=== PATIENT | female | born 1975 | race Caucasian/White ===

== ENCOUNTER → 2016-12-08 | Outpatient (CLI) | payer OTHER ==
--- NOTE | 2016-12-08 12:33 | DIAGNOSTIC IMAGING REPORT ---
PROCEDURE: MG BILATERAL SCREENING W/CAD INDICATION: Screening. Baseline. TECHNIQUE: Bilateral CC and MLO digital views. COMPARISON: None FINDINGS: Computer-aided detection applied. Moderately dense. No evidence of mass or suspicious calcification. IMPRESSION: 1. Negative mammogram RESULT CODE: 1- Negative. A. A negative report should not delay biopsy if a dominant or clinically suspicious mass is present. 10-15% of cancers are not identified by x-ray. B. A negative report may reinforce clinical impression. C. Adenosis and dense breasts may obscure an underlying neoplasm. D. False positive reports average 6-10%. E.. A yearly screening mammogram is recommended. A reminder letter will be scheduled.
== END ==
LOC: MAM SRH 10:49
DX: Z12.31 Encounter for screening mammogram for malignant neoplasm of breast (principal)

== ENCOUNTER 2017-02-01 20:20 | Emergency (ER) | payer OTHER ==
--- NOTE | 2017-02-01 21:04 | ED CLINICAL REPORT ---
Clinical Report - Physicians/Mid Levels [facility] [address] [place] [address] 02/01/2017 20:23 [id number] Time Seen: 20:34 Feb 01 2017. Arrived- By private vehicle. Historian- patient. HISTORY OF PRESENT ILLNESS Chief Complaint: Injury to right leg. The injury happened just prior to arrival. Occurred at an athletic field. This was not caused by a crush injury. Patient is experiencing mild pain. Patient denies injury to the head or neck. (Patient was running while playing football, when she felt a snap and pop sensation to her right calf. Patient reports pain to the right calf since the incident. Patient denies prior injury to the calf, has had surgery to the right knee. Reports difficulty ambulating since. Denies any paresthesias. Denies taking any medications prior to arrival. Denies any other injury. Hasn't had her neck or LOC injured). REVIEW OF SYSTEMS The patient sustained a laceration. She complains of pain on weight bearing. All systems otherwise negative, except as recorded above. PAST HISTORY The patient has had a prior injury to the same area (R. Knee Surgery). Last tetanus immunization was more than 5 years ago. Problems: no known problems. Additional Surgeries: Cholecystectomy. . Knee Surgery. Medications: Zoloft Oral 100 mg, daily. Allergies: Ampicillin. SOCIAL HISTORY No alcohol use or drug use. ADDITIONAL NOTES The nursing notes have been reviewed. PHYSICAL EXAM Vital Signs: 02/01/2017 20:27 BP: 113/52. HR: 88. RR: 18. O2 saturation: 100%. Temp: 98.4 F. Pain level now: 7/10. Appearance: Alert. No acute distress. Head: Head atraumatic. CVS: Normal heart rate and rhythm. Heart sounds normal. Respiratory: No respiratory distress. Breath sounds normal. Skin: Skin intact. Skin warm. Normal skin color. Extremities: Lower extremity soft-tissue tenderness present. Right knee. No tenderness or swelling. Right leg. (posterior mid calf tenderness, neg squeeze test, intact achilles good plantar flexion, pain with flexion of calcaneous to gluteus). Right ankle. No tenderness or laceration. Not localized to the lateral ligaments. Neuro, Vascular and Tendons: Vascular status intact. Motor intact. Tendon function intact. Gait: Limping gait. Neuro: Oriented X 3. PROGRESS AND PROCEDURES PROCEDURES (richard wrap right calf/ crutches). Course of Care: Patient with a right calf injury, with no signs of Achilles injury. Very stable. Running mechanism, with no direct fall or trauma, suspicion for acute fracture is very low. Patient with a good distal pulse and sensation. 02/01/2017 20:27 BP: 113/52. HR: 88. RR: 18. O2 saturation: 100%. Temp: 98.4 F. Pain level now: 10. Patient is stable. Symptoms better. Patient/family counseled. Disposition: Discharged. CLINICAL IMPRESSION Muscle strain of the posterior aspect of the right lower leg. INSTRUCTIONS Apply ice. Use crutches for five. Elevate affected areas above chest level. Do not work for two days. (use richard wrap follow up with [facility] in next 4-5 days). Prescription Medications: Hydrocodone/APAP 5mg / 325mg: take 1 orally every 12 hours as needed for pain. Dispense twelve (12). Flexeril 10 mg: take 1 orally every 8 hours for 3 days as needed for muscle spasm. Dispense ten (10). No refills. Substitution is permissible. Ibuprofen 800 mg tablets: take 1 tablet orally every 8 hours for 5 days, as needed for pain. Dispense fifteen (15). No refill. Follow-up with: [facility], , [address], , [place], [address] Follow up. Call for the next available appointment. (Electronically signed by Rosita Massey P.A.-C 02/01/2017 21:18)
--- NOTE | 2017-02-01 21:04 | ED CLINICAL REPORT ---
Clinical Report - Physicians/Mid Levels [facility] [address] [place] [address] 02/01/2017 20:23 [id number] Time Seen: 20:34 Feb 01 2017. Arrived- By private vehicle. Historian- patient. HISTORY OF PRESENT ILLNESS Chief Complaint: Injury to right leg. The injury happened just prior to arrival. Occurred at an athletic field. This was not caused by a crush injury. Patient is experiencing mild pain. Patient denies injury to the head or neck. (Patient was running while playing football, when she felt a snap and pop sensation to her right calf. Patient reports pain to the right calf since the incident. Patient denies prior injury to the calf, has had surgery to the right knee. Reports difficulty ambulating since. Denies any paresthesias. Denies taking any medications prior to arrival. Denies any other injury. Hasn't had her neck or LOC injured). REVIEW OF SYSTEMS The patient sustained a laceration. She complains of pain on weight bearing. All systems otherwise negative, except as recorded above. PAST HISTORY The patient has had a prior injury to the same area (R. Knee Surgery). Last tetanus immunization was more than 5 years ago. Problems: no known problems. Additional Surgeries: Cholecystectomy. . Knee Surgery. Medications: Zoloft Oral 100 mg, daily. Allergies: Ampicillin. SOCIAL HISTORY No alcohol use or drug use. ADDITIONAL NOTES The nursing notes have been reviewed. PHYSICAL EXAM Vital Signs: 02/01/2017 20:27 BP: 113/52. HR: 88. RR: 18. O2 saturation: 100%. Temp: 98.4 F. Pain level now: 7/10. Appearance: Alert. No acute distress. Head: Head atraumatic. CVS: Normal heart rate and rhythm. Heart sounds normal. Respiratory: No respiratory distress. Breath sounds normal. Skin: Skin intact. Skin warm. Normal skin color. Extremities: Lower extremity soft-tissue tenderness present. Right knee. No tenderness or swelling. Right leg. (posterior mid calf tenderness, neg squeeze test, intact achilles good plantar flexion, pain with flexion of calcaneous to gluteus). Right ankle. No tenderness or laceration. Not localized to the lateral ligaments. Neuro, Vascular and Tendons: Vascular status intact. Motor intact. Tendon function intact. Gait: Limping gait. Neuro: Oriented X 3. PROGRESS AND PROCEDURES PROCEDURES (richard wrap right calf/ crutches). Course of Care: Patient with a right calf injury, with no signs of Achilles injury. Very stable. Running mechanism, with no direct fall or trauma, suspicion for acute fracture is very low. Patient with a good distal pulse and sensation. 02/01/2017 20:27 BP: 113/52. HR: 88. RR: 18. O2 saturation: 100%. Temp: 98.4 F. Pain level now: 10. Patient is stable. Symptoms better. Patient/family counseled. Disposition: Discharged. CLINICAL IMPRESSION Muscle strain of the posterior aspect of the right lower leg. INSTRUCTIONS Apply ice. Use crutches for five. Elevate affected areas above chest level. Do not work for two days. (use richard wrap follow up with [facility] in next 4-5 days). Prescription Medications: Hydrocodone/APAP 5mg / 325mg: take 1 orally every 12 hours as needed for pain. Dispense twelve (12). Flexeril 10 mg: take 1 orally every 8 hours for 3 days as needed for muscle spasm. Dispense ten (10). No refills. Substitution is permissible. Ibuprofen 800 mg tablets: take 1 tablet orally every 8 hours for 5 days, as needed for pain. Dispense fifteen (15). No refill. Follow-up with: [facility], , [address], , [place], [address] Follow up. Call for the next available appointment. (Electronically signed by Rosita Massey P.A.-C 02/01/2017 21:18)
--- NOTE | 2017-02-01 21:04 | ED NURSING NOTES ---
Clinical Report - Nurses [facility] [address] [place] [address] 02/01/2017 20:23 Patient: MICHI MARIE TRIAGE Triage time 2027. Acuity: LEVEL 4. Chief Complaint: INJURY TO THE RIGHT LEG. ( last ate 1730- turkey sandwich, last liquids 8 oz water at 1830). SAMANTA COMA SCORE: Samanta Coma Scale: 15- eyes open spontaneously (4); best verbal response- oriented x 4 (5); best motor response- obeys commands (6). --20:36 Jolie Lopez R.N. 20:27 02/01/17. BP: 113/52. HR: 88. RR: 18. O2 saturation: 100%. Temp: 98.4 F. Pain level now: 04/10. --20:36 Jolie Lopez R.N. Weight: 61.2 kg stated. Height/Length: 68 inches Per Patient. BMI: 20.5. --20:35 Jolie Lopez R.N. Medications Zoloft Oral 100 mg, daily. --20:34 Jolie Lopez R.N. Allergies Ampicillin. --20:34 Jolie Lopez R.N. History Arrived by private vehicle. Historian: patient. Accompanied by family. Primary physician (nicola). This occurred (pt was running and "felt her leg Pop" and had severe pain in her right calf. unable to walk on foot now. has good distal color, temp and cap refill). She has had trouble walking. PAST MEDICAL HX: Negative. Last normal menstrual period- 1 week. SURGERY HX: . Cholecystectomy. Right knee surgery (x3). SOCIAL HX: Never smoker. No alcohol use or drug use. --20:36 Jolie Lopez R.N. PROBLEMS: no known problems. Interventions ID band on patient. To treatment room. --20:36 Jolie Lopez R.N. PHYSICAL ASSESSMENT 20:28. To room via wheelchair. Patient gowned. GENERAL / NEURO / PSYCH: Oriented X 4. Alert. Appears in pain. EXTREMITIES: Limited ROM present. Capillary refill is less than 2 seconds in the extremities. Extremity pulses are within normal limits. She was unable to bear weight. Right leg: tenderness. SKIN: Skin intact. Skin is warm and dry. --20:37 Jolie Lopez R.N. NURSING PROGRESS NOTES 20:28. Cold pack applied. Reassurance given. Patient identifiers checked. Call light placed in reach. Side rails up. Bed placed in lowest position. Patient ready for evaluation- chart flagged. --20:36 Jolie Lopez R.N. 21:00 02/01/2017 Valium (Diazepam) PO Tablets 2.5 mg given. Allergies verified, confirmed 5 rights and sedative warning given to the patient. --21:01 Jolie Lopez R.N. 21:00 02/01/2017 Motrin PO Tablets 800 mg given. Allergies verified and confirmed 5 rights. --21:02 Jolie Lopez R.N. 21:02/01/2017 Hydrocodone-APAP (Hydrocodone-Acetaminophen) PO 5/325 mg Tablets 1 tab given. Allergies verified, confirmed 5 rights and sedative warning given to the patient. --21:01 Jolie Lopez R.N. ( 2054: Right calf wrap with JUSTICE). --21:05 Cheyenne Callahan Patient fit with new crutches (2056). --21:05 Cheyenne Callahan. DISPOSITION / DISCHARGE 21:05. Condition at departure: stable. No learning barriers present. Discharge instructions provided and reviewed with the patient and family. Reviewed medication(s) (flexeril, vicodin, motrin). Reviewed crutch walking instructions. Patient and family verbalized understanding. Written instructions provided in [place]. The patient was discharged home and accompanied by family. She left the Emergency Department ambulatory and via private vehicle. Driving (sister). --21:16 Jolie Lopez R.N. 21:05 02/01/17. BP: 102/69. HR: 76. RR: 16. O2 saturation: 100%. Temp: deferred. Pain level now: 03/11. --21:16 Jolie Lopez R.N. Locked/Released at 02/01/2017 21:16 by Jolie Lopez R.N.
--- NOTE | 2017-02-01 21:04 | ED NURSING NOTES ---
Clinical Report - Nurses [facility] [address] [place] [address] 02/01/2017 20:23 Patient: MICHI MARIE TRIAGE Triage time 2027. Acuity: LEVEL 4. Chief Complaint: INJURY TO THE RIGHT LEG. ( last ate 1730- turkey sandwich, last liquids 8 oz water at 1830). SAMANTA COMA SCORE: Samanta Coma Scale: 15- eyes open spontaneously (4); best verbal response- oriented x 4 (5); best motor response- obeys commands (6). --20:36 Jolie Lopez R.N. 20:27 02/01/17. BP: 113/52. HR: 88. RR: 18. O2 saturation: 100%. Temp: 98.4 F. Pain level now: 04/10. --20:36 Jolie Lopez R.N. Weight: 61.2 kg stated. Height/Length: 68 inches Per Patient. BMI: 20.5. --20:35 Jolie Lopez R.N. Medications Zoloft Oral 100 mg, daily. --20:34 Jolie Lopez R.N. Allergies Ampicillin. --20:34 Jolie Lopez R.N. History Arrived by private vehicle. Historian: patient. Accompanied by family. Primary physician (nicola). This occurred (pt was running and "felt her leg Pop" and had severe pain in her right calf. unable to walk on foot now. has good distal color, temp and cap refill). She has had trouble walking. PAST MEDICAL HX: Negative. Last normal menstrual period- 1 week. SURGERY HX: . Cholecystectomy. Right knee surgery (x3). SOCIAL HX: Never smoker. No alcohol use or drug use. --20:36 Jolie Lopez R.N. PROBLEMS: no known problems. Interventions ID band on patient. To treatment room. --20:36 Jolie Lopez R.N. PHYSICAL ASSESSMENT 20:28. To room via wheelchair. Patient gowned. GENERAL / NEURO / PSYCH: Oriented X 4. Alert. Appears in pain. EXTREMITIES: Limited ROM present. Capillary refill is less than 2 seconds in the extremities. Extremity pulses are within normal limits. She was unable to bear weight. Right leg: tenderness. SKIN: Skin intact. Skin is warm and dry. --20:37 Jolie Lopez R.N. NURSING PROGRESS NOTES 20:28. Cold pack applied. Reassurance given. Patient identifiers checked. Call light placed in reach. Side rails up. Bed placed in lowest position. Patient ready for evaluation- chart flagged. --20:36 Jolie Lopez R.N. 21:00 02/01/2017 Valium (Diazepam) PO Tablets 2.5 mg given. Allergies verified, confirmed 5 rights and sedative warning given to the patient. --21:01 Jolie Lopez R.N. 21:00 02/01/2017 Motrin PO Tablets 800 mg given. Allergies verified and confirmed 5 rights. --21:02 Jolie Lopez R.N. 21:02/01/2017 Hydrocodone-APAP (Hydrocodone-Acetaminophen) PO 5/325 mg Tablets 1 tab given. Allergies verified, confirmed 5 rights and sedative warning given to the patient. --21:01 Jolie Lopez R.N. ( 2054: Right calf wrap with JUSTICE). --21:05 Cheyenne Callahan Patient fit with new crutches (2056). --21:05 Cheyenne Callahan. DISPOSITION / DISCHARGE 21:05. Condition at departure: stable. No learning barriers present. Discharge instructions provided and reviewed with the patient and family. Reviewed medication(s) (flexeril, vicodin, motrin). Reviewed crutch walking instructions. Patient and family verbalized understanding. Written instructions provided in Algerian. The patient was discharged home and accompanied by family. She left the Emergency Department ambulatory and via private vehicle. Driving (sister). --21:16 Jolie Lopez R.N. 21:05 02/01/17. BP: 102/69. HR: 76. RR: 16. O2 saturation: 100%. Temp: deferred. Pain level now: 03/11. --21:16 Jolie Lopez R.N. Locked/Released at 02/01/2017 21:16 by Jolie Lopez R.N.
--- NOTE | 2017-02-01 21:05 | ED ORDER SUMMARY ---
..... Patient: MICHI MARIE OrderSheet [facility] VisitID: [id number] [place] [address] 41y, F Registration Date/Time: 02/01/2017 ORDER SHEET Weight: 61.2 kg (stated) Allergies: Ampicillin GENERAL ORDERS: Alexey Wrap (20:48 02/01/2017 EKoroleva P.A.-C) (21:01 Destin) Crutches (20:48 02/01/2017 EKoroleva P.A.-C) (21:01 Eliasnina) MEDICATION ORDERS: Valium PO 2.5 mg (HIGH ALERT MEDICATION, NOW) (20:47 02/01/2017 EKoroleva P.A.-C) (Ack 20:49 DDean R.N.) (21:01 DDean R.N.) Hydrocodone-APAP PO 5/325 mg (NOW, HIGH ALERT MEDICATION) (20:47 02/01/2017 EKoroleva P.A.-C) (Ack 20:49 DDean R.N.) (21:01 DDean R.N.) Motrin PO 800 mg (NOW) (20:47 02/01/2017 EKoroleva P.A.-C) (Ack 20:49 DDean R.N.) (21:02 DDean R.N.) IV FLUIDS: ORDER SHEET NOTES: [Electronically signed by Jolie Lopez R.N. (21:16 02/01/2017)] [Electronically signed by Rosita MasseyA.-C (21:18 02/01/2017)] [Electronically locked/signed by Jolie Lopez R.N. (21:16 02/01/2017)]
--- NOTE | 2017-02-01 21:05 | ED ORDER SUMMARY ---
..... Patient: MICHI MARIE OrderSheet [facility] VisitID: [id number] [place] [address] 41y, F Registration Date/Time: 02/01/2017 ORDER SHEET Weight: 61.2 kg (stated) Allergies: Ampicillin GENERAL ORDERS: Alexey Wrap (20:48 02/01/2017 EKoroleva P.A.-C) (21:01 [place]in) Crutches (20:48 02/01/2017 EKoroleva P.A.-C) (21:01 Eliasnina) MEDICATION ORDERS: Valium PO 2.5 mg (HIGH ALERT MEDICATION, NOW) (20:47 02/01/2017 EKoroleva P.A.-C) (Ack 20:49 DDean R.N.) (21:01 DDean R.N.) Hydrocodone-APAP PO 5/325 mg (NOW, HIGH ALERT MEDICATION) (20:47 02/01/2017 EKoroleva P.A.-C) (Ack 20:49 DDean R.N.) (21:01 DDean R.N.) Motrin PO 800 mg (NOW) (20:47 02/01/2017 EKoroleva P.A.-C) (Ack 20:49 DDean R.N.) (21:02 DDean R.N.) IV FLUIDS: ORDER SHEET NOTES: [Electronically signed by Jolie Lopez R.N. (21:16 02/01/2017)] [Electronically signed by Rosita MasseyA.-C (21:18 02/01/2017)] [Electronically locked/signed by Jolie Lopez R.N. (21:16 02/01/2017)]
--- NOTE | 2017-02-01 21:19 | ED MAR SUMMARY ---
..... Medication Administration Record [facility] [address] [place] [address] Patient: MICHI MARIE Visit ID: [id number] 41y, F Weight: 61.2 kg Height/Length: 68 in BMI: 20.5 ALLERGIES: Ampicillin Given 21:02/01/2017 Jolie Lopez R.N. Medication Administered: VALIUM [PO] (DIAZEPAM), Dose: 2.5 mg Tablets PO. Medication Ordered: Valium PO 2.5 mg (HIGH ALERT MEDICATION, NOW). Given 21:02/01/2017 Jolie Lopez R.N. Medication Administered: MOTRIN [PO], Dose: 800 mg Tablets PO. Medication Ordered: Motrin PO 800 mg (NOW). Given 21:01 02/01/2017 Jolie Lopez RIvonneN. Medication Administered: HYDROCODONE-APAP [PO] (HYDROCODONE-ACETAMINOPHEN), Dose: 1 tab 5/325 mg Tablets PO. Medication Ordered: Hydrocodone-APAP PO 5/325 mg (NOW, HIGH ALERT MEDICATION).
--- NOTE | 2017-02-01 21:19 | ED MED RECONCILIATION SUMMARY ---
Patient: MICHI MARIE Medication Reconciliation Report [facility] VisitID: [id number] [place] [address] 41y, F Registration Date/Time: 02/01/2017 Weight: 61.2 kg Height/Length: 68 in. BMI: 20.5 ALLERGIES: Ampicillin The patient's Home Medications are listed below: THE FOLLOWING MEDICATIONS NEED TO BE RECONCILED: Zoloft Oral 100 mg, daily The source(s) of the original Home Medication information: Not obtained. The following Medications were given to the patient in the Emergency Department: Valium [PO] PO 2.5 mg, administered: 02/01/2017 9:00:00 PM Hydrocodone-APAP [PO] PO 1 tab, administered: 02/01/2017 9:01:00 PM Motrin [PO] PO 800 mg, administered: 02/01/2017 9:00:00 PM The following Medications were prescribed to the patient: Hydrocodone/APAP 5mg / 325mg: take 1 orally every 12 hours as needed for pain. Dispense twelve (12). -- Rosita Massey, P.A.-C Flexeril 10 mg: take 1 orally every 8 hours for 3 days as needed for muscle spasm. Dispense ten (10). No refills. Substitution is permissible. -- Rosita Massey, P.A.-C Ibuprofen 800 mg tablets: take 1 tablet orally every 8 hours for 5 days, as needed for pain. Dispense fifteen (15). No refill. -- Rosita Massey, P.A.-C
--- NOTE | 2017-02-01 21:19 | ED MED RECONCILIATION SUMMARY ---
Patient: MICHI MARIE Medication Reconciliation Report [facility] VisitID: [id number] [place] [address] 41y, F Registration Date/Time: 02/01/2017 Weight: 61.2 kg Height/Length: 68 in. BMI: 20.5 ALLERGIES: Ampicillin The patient's Home Medications are listed below: THE FOLLOWING MEDICATIONS NEED TO BE RECONCILED: Zoloft Oral 100 mg, daily The source(s) of the original Home Medication information: Not obtained. The following Medications were given to the patient in the Emergency Department: Valium [PO] PO 2.5 mg, administered: 02/01/2017 9:00:00 PM Hydrocodone-APAP [PO] PO 1 tab, administered: 02/01/2017 9:01:00 PM Motrin [PO] PO 800 mg, administered: 02/01/2017 9:00:00 PM The following Medications were prescribed to the patient: Hydrocodone/APAP 5mg / 325mg: take 1 orally every 12 hours as needed for pain. Dispense twelve (12). -- Rosita Massey, P.A.-C Flexeril 10 mg: take 1 orally every 8 hours for 3 days as needed for muscle spasm. Dispense ten (10). No refills. Substitution is permissible. -- Rosita Massey, P.A.-C Ibuprofen 800 mg tablets: take 1 tablet orally every 8 hours for 5 days, as needed for pain. Dispense fifteen (15). No refill. -- Rosita Massey, P.A.-C
--- NOTE | 2017-02-01 21:19 | ED DISCHARGE INSTRUCTIONS ---
Patient: MICHI MARIE General Instructions [facility] VisitID: [id number] [address] [place] [address] 41y, F Registration Date/Time: 02/01/2017 Muscle strain of the posterior aspect of the right lower leg. INSTRUCTIONS Apply ice. Use crutches for five. Elevate affected areas above chest level. Do not work for two days. (use richard wrap follow up with [facility] in next 4-5 days). Prescription Medications: Hydrocodone/APAP 5mg / 325mg: take 1 orally every 12 hours as needed for pain. Dispense twelve (12). Flexeril 10 mg: take 1 orally every 8 hours for 3 days as needed for muscle spasm. Dispense ten (10). No refills. Substitution is permissible. Ibuprofen 800 mg tablets: take 1 tablet orally every 8 hours for 5 days, as needed for pain. Dispense fifteen (15). No refill. [facility] with: [facility], , [address], , [place], [id number] Follow up. Call for the next available appointment. ADDITIONAL INFORMATION Muscle Strain,Extremity A MUSCLE STRAIN is a stretching and tearing of muscle fibers. This causes pain, especially with motion of that muscle. There may also be some swelling and bruising. Home Care: 1) Keep the injured area raised to reduce pain and swelling. This is especially important during the first 48 hours. 2) Make an ice pack (ice cubes in a plastic bag, wrapped in a towel) and apply for 20 minutes every 1-2 hours the first day. You should continue with ice packs 3-4 times a day for the second and third days. Unless otherwise instructed, on the fourth day you may begin hot soaks or hot packs (small towel soaked in hot water) 3-4 times a day while you gently exercise the involved area. 3) You may use acetaminophen (Tylenol) or ibuprofen (Motrin, Advil) to control pain, unless another medicine was prescribed. [ NOTE : If you have chronic liver or kidney disease or ever had a stomach ulcer or GI bleeding, talk with your doctor before using these medicines.] 4) For LEG STRAINS: If CRUTCHES have been recommended, do not bear full weight on the injured leg until you can do so without pain. You may return to sports when you are able to hop and run on the injured leg without pain. Follow Up with your doctor or this facility if you are not improving within the next five days. Get Prompt Medical Attention if any of the following occur: -- Fingers or toes become swollen, cold, blue, numb or tingly -- Pain or swelling increases Hydrocodone Bitartrate, Acetaminophen Oral tablet What is this medicine? ACETAMINOPHEN; HYDROCODONE (a set a IVANA kingsley fen; david droe KOE done) is a pain reliever. It is used to treat mild to moderate pain. How should I use this medicine? Take this medicine by mouth. Swallow it with a full glass of water. Follow the directions on the prescription label. If the medicine upsets your stomach, take the medicine with food or milk. Do not take more than you are told to take. Talk to your emission technician regarding the use of this medicine in children. This medicine is not approved for use in children. What side effects may I notice from receiving this medicine? Side effects that you should report to your doctor or health tire care manager as soon as possible: allergic reactions like skin rash, itching or hives, swelling of the face, lips, or tongue breathing problems confusion feeling faint or lightheaded, falls stomach pain yellowing of the eyes or skin Side effects that usually do not require medical attention (report to your doctor or health tire care manager if they continue or are bothersome): nausea, vomiting stomach upset What may interact with this medicine? alcohol antihistamines isoniazid medicines for depression, anxiety, or psychotic disturbances medicines for sleep muscle relaxants naltrexone narcotic medicines (opiates) for pain phenobarbital ritonavir tramadol What if I miss a dose? If you miss a dose, take it as soon as you can. If it is almost time for your next dose, take only that dose. Do not take double or extra doses. Where should I keep my medicine? Keep out of the reach of children. This medicine can be abused. Keep your medicine in a safe place to protect it from theft. Do not share this medicine with anyone. Selling or giving away this medicine is dangerous and against the law. Store at room temperature between 15 and 30 degrees C (59 and 86 degrees F). Protect from light. Keep container tightly closed. Throw away any unused medicine after the expiration date. Discard unused medicine and used packaging carefully. Pets and children can be harmed if they find used or lost packages. What should I tell my health care provider before I take this medicine? They need to know if you have any of these conditions: brain tumor Crohn's disease, inflammatory bowel disease, or ulcerative colitis drink more than 3 alcohol-containing drinks per day drug abuse or addiction head injury heart or circulation problems kidney disease or problems going to the bathroom liver disease lung disease, asthma, or breathing problems an unusual or allergic reaction to acetaminophen, hydrocodone, other opioid analgesics, other medicines, foods, dyes, or preservatives or trying to get breast-feeding What should I watch for while using this medicine? Tell your doctor or health tire care manager if your pain does not go away, if it gets worse, or if you have new or a different type of pain. You may develop tolerance to the medicine. Tolerance means that you will need a higher dose of the medicine for pain relief. Tolerance is normal and is expected if you take the medicine for a long time. Do not suddenly stop taking your medicine because you may develop a severe reaction. Your body becomes used to the medicine. This does NOT mean you are addicted. Addiction is a behavior related to getting and using a drug for a non-medical reason. If you have pain, you have a medical reason to take pain medicine. Your doctor will tell you how much medicine to take. If your doctor wants you to stop the medicine, the dose will be slowly lowered over time to avoid any side effects. You may get drowsy or dizzy when you first start taking the medicine or change doses. Do not drive, use machinery, or do anything that may be dangerous until you know how the medicine affects you. Stand or sit up slowly. There are different types of narcotic medicines (opiates) for pain. If you take more than one type at the same time, you may have more side effects. Give your health care provider a list of all medicines you use. Your doctor will tell you how much medicine to take. Do not take more medicine than directed. Call emergency for help if you have problems breathing. The medicine will cause constipation. Try to have a bowel movement at least every 2 to 3 days. If you do not have a bowel movement for 3 days, call your doctor or health tire care manager. Too much acetaminophen can be very dangerous. Do not take Tylenol (acetaminophen) or medicines that contain acetaminophen with this medicine. Many non-prescription medicines contain acetaminophen. Always read the labels carefully. Cyclobenzaprine Hydrochloride Oral tablet What is this medicine? CYCLOBENZAPRINE (nathalia mao) is a muscle relaxer. It is used to treat muscle pain, spasms, and stiffness. How should I use this medicine? Take this medicine by mouth with a glass of water. Follow the directions on the prescription label. If this medicine upsets your stomach, take it with food or milk. Take your medicine at regular intervals. Do not take it more often than directed. Talk to your emission technician regarding the use of this medicine in children. Special care may be needed. What side effects may I notice from receiving this medicine? Side effects that you should report to your doctor or health tire care manager as soon as possible: allergic reactions like skin rash, itching or hives, swelling of the face, lips, or tongue chest pain fast heartbeat hallucinations seizures vomiting Side effects that usually do not require medical attention (report to your doctor or health tire care manager if they continue or are bothersome): headache What may interact with this medicine? Do not take this medicine with any of the following medications: cisapride droperidol flecainide grepafloxacin halofantrine levomethadyl MAOIs like Carbex, Eldepryl, Marplan, Nardil, and Parnate nilotinib pimozide probucol sertindole This medicine may also interact with the following medications: abarelix alcohol contrast dyes dolasetron guanethidine medicines for cancer medicines for depression, anxiety, or psychotic disturbances medicines to treat an irregular heartbeat medicines used for sleep or numbness during surgery or procedure methadone octreotide ondansetron palonosetron phenothiazines like chlorpromazine, mesoridazine, prochlorperazine, thioridazine some medicines for infection like alfuzosin, chloroquine, clarithromycin, levofloxacin, mefloquine, pentamidine, troleandomycin tramadol vardenafil What if I miss a dose? If you miss a dose, take it as soon as you can. If it is almost time for your next dose, take only that dose. Do not take double or extra doses. Where should I keep my medicine? Keep out of the reach of children. Store at room temperature between 15 and 30 degrees C (59 and 86 degrees F). Keep container tightly closed. Throw away any unused medicine after the expiration date. What should I tell my health care provider before I take this medicine? They need to know if you have any of these conditions: heart disease, irregular heartbeat, or previous heart attack liver disease thyroid problem an unusual or allergic reaction to cyclobenzaprine, tricyclic antidepressants, lactose, other medicines, foods, dyes, or preservatives or trying to get breast-feeding What should I watch for while using this medicine? Check with your doctor or health tire care manager if your condition does not improve within 1 to 3 weeks. You may get drowsy or dizzy when you first start taking the medicine or change doses. Do not drive, use machinery, or do anything that may be dangerous until you know how the medicine affects you. Stand or sit up slowly. Your mouth may get dry. Drinking water, chewing sugarless gum, or sucking on hard candy may help. You have been given the following additional information: Muscle Strain, Extremity Hydrocodone Bitartrate, Acetaminophen Oral tablet Cyclobenzaprine Hydrochloride Oral tablet Do not work for two days. (Electronically signed by Rosita Massey P.A.-C 02/01/2017 21:18)
--- NOTE | 2017-02-01 21:19 | ED DISCHARGE INSTRUCTIONS ---
Patient: MICHI MARIE General Instructions [facility] VisitID: [id number] [address] [place] [address] 41y, F Registration Date/Time: 02/01/2017 Muscle strain of the posterior aspect of the right lower leg. INSTRUCTIONS Apply ice. Use crutches for five. Elevate affected areas above chest level. Do not work for two days. (use richard wrap follow up with [facility] in next 4-5 days). Prescription Medications: Hydrocodone/APAP 5mg / 325mg: take 1 orally every 12 hours as needed for pain. Dispense twelve (12). Flexeril 10 mg: take 1 orally every 8 hours for 3 days as needed for muscle spasm. Dispense ten (10). No refills. Substitution is permissible. Ibuprofen 800 mg tablets: take 1 tablet orally every 8 hours for 5 days, as needed for pain. Dispense fifteen (15). No refill. Follow-up with: [facility], , [address], , [place], [id number] Follow up. Call for the next available appointment. ADDITIONAL INFORMATION Muscle Strain,Extremity A MUSCLE STRAIN is a stretching and tearing of muscle fibers. This causes pain, especially with motion of that muscle. There may also be some swelling and bruising. Home Care: 1) Keep the injured area raised to reduce pain and swelling. This is especially important during the first 48 hours. 2) Make an ice pack (ice cubes in a plastic bag, wrapped in a towel) and apply for 20 minutes every 1-2 hours the first day. You should continue with ice packs 3-4 times a day for the second and third days. Unless otherwise instructed, on the fourth day you may begin hot soaks or hot packs (small towel soaked in hot water) 3-4 times a day while you gently exercise the involved area. 3) You may use acetaminophen (Tylenol) or ibuprofen (Motrin, Advil) to control pain, unless another medicine was prescribed. [ NOTE : If you have chronic liver or kidney disease or ever had a stomach ulcer or GI bleeding, talk with your doctor before using these medicines.] 4) For LEG STRAINS: If CRUTCHES have been recommended, do not bear full weight on the injured leg until you can do so without pain. You may return to sports when you are able to hop and run on the injured leg without pain. Follow Up with your doctor or this facility if you are not improving within the next five days. Get Prompt Medical Attention if any of the following occur: -- Fingers or toes become swollen, cold, blue, numb or tingly -- Pain or swelling increases Hydrocodone Bitartrate, Acetaminophen Oral tablet What is this medicine? ACETAMINOPHEN; HYDROCODONE (a set a IVANA kingsley fen; david droe KOE done) is a pain reliever. It is used to treat mild to moderate pain. How should I use this medicine? Take this medicine by mouth. Swallow it with a full glass of water. Follow the directions on the prescription label. If the medicine upsets your stomach, take the medicine with food or milk. Do not take more than you are told to take. Talk to your registered pharmacist regarding the use of this medicine in children. This medicine is not approved for use in children. What side effects may I notice from receiving this medicine? Side effects that you should report to your doctor or health pharmacist critical care as soon as possible: allergic reactions like skin rash, itching or hives, swelling of the face, lips, or tongue breathing problems confusion feeling faint or lightheaded, falls stomach pain yellowing of the eyes or skin Side effects that usually do not require medical attention (report to your doctor or health pharmacist critical care if they continue or are bothersome): nausea, vomiting stomach upset What may interact with this medicine? alcohol antihistamines isoniazid medicines for depression, anxiety, or psychotic disturbances medicines for sleep muscle relaxants naltrexone narcotic medicines (opiates) for pain phenobarbital ritonavir tramadol What if I miss a dose? If you miss a dose, take it as soon as you can. If it is almost time for your next dose, take only that dose. Do not take double or extra doses. Where should I keep my medicine? Keep out of the reach of children. This medicine can be abused. Keep your medicine in a safe place to protect it from theft. Do not share this medicine with anyone. Selling or giving away this medicine is dangerous and against the law. Store at room temperature between 15 and 30 degrees C (59 and 86 degrees F). Protect from light. Keep container tightly closed. Throw away any unused medicine after the expiration date. Discard unused medicine and used packaging carefully. Pets and children can be harmed if they find used or lost packages. What should I tell my health care provider before I take this medicine? They need to know if you have any of these conditions: brain tumor Crohn's disease, inflammatory bowel disease, or ulcerative colitis drink more than 3 alcohol-containing drinks per day drug abuse or addiction head injury heart or circulation problems kidney disease or problems going to the bathroom liver disease lung disease, asthma, or breathing problems an unusual or allergic reaction to acetaminophen, hydrocodone, other opioid analgesics, other medicines, foods, dyes, or preservatives or trying to get breast-feeding What should I watch for while using this medicine? Tell your doctor or health pharmacist critical care if your pain does not go away, if it gets worse, or if you have new or a different type of pain. You may develop tolerance to the medicine. Tolerance means that you will need a higher dose of the medicine for pain relief. Tolerance is normal and is expected if you take the medicine for a long time. Do not suddenly stop taking your medicine because you may develop a severe reaction. Your body becomes used to the medicine. This does NOT mean you are addicted. Addiction is a behavior related to getting and using a drug for a non-medical reason. If you have pain, you have a medical reason to take pain medicine. Your doctor will tell you how much medicine to take. If your doctor wants you to stop the medicine, the dose will be slowly lowered over time to avoid any side effects. You may get drowsy or dizzy when you first start taking the medicine or change doses. Do not drive, use machinery, or do anything that may be dangerous until you know how the medicine affects you. Stand or sit up slowly. There are different types of narcotic medicines (opiates) for pain. If you take more than one type at the same time, you may have more side effects. Give your health care provider a list of all medicines you use. Your doctor will tell you how much medicine to take. Do not take more medicine than directed. Call emergency for help if you have problems breathing. The medicine will cause constipation. Try to have a bowel movement at least every 2 to 3 days. If you do not have a bowel movement for 3 days, call your doctor or health pharmacist critical care. Too much acetaminophen can be very dangerous. Do not take Tylenol (acetaminophen) or medicines that contain acetaminophen with this medicine. Many non-prescription medicines contain acetaminophen. Always read the labels carefully. Cyclobenzaprine Hydrochloride Oral tablet What is this medicine? CYCLOBENZAPRINE (nathalia mao) is a muscle relaxer. It is used to treat muscle pain, spasms, and stiffness. How should I use this medicine? Take this medicine by mouth with a glass of water. Follow the directions on the prescription label. If this medicine upsets your stomach, take it with food or milk. Take your medicine at regular intervals. Do not take it more often than directed. Talk to your registered pharmacist regarding the use of this medicine in children. Special care may be needed. What side effects may I notice from receiving this medicine? Side effects that you should report to your doctor or health pharmacist critical care as soon as possible: allergic reactions like skin rash, itching or hives, swelling of the face, lips, or tongue chest pain fast heartbeat hallucinations seizures vomiting Side effects that usually do not require medical attention (report to your doctor or health pharmacist critical care if they continue or are bothersome): headache What may interact with this medicine? Do not take this medicine with any of the following medications: cisapride droperidol flecainide grepafloxacin halofantrine levomethadyl MAOIs like Carbex, Eldepryl, Marplan, Nardil, and Parnate nilotinib pimozide probucol sertindole This medicine may also interact with the following medications: abarelix alcohol contrast dyes dolasetron guanethidine medicines for cancer medicines for depression, anxiety, or psychotic disturbances medicines to treat an irregular heartbeat medicines used for sleep or numbness during surgery or procedure methadone octreotide ondansetron palonosetron phenothiazines like chlorpromazine, mesoridazine, prochlorperazine, thioridazine some medicines for infection like alfuzosin, chloroquine, clarithromycin, levofloxacin, mefloquine, pentamidine, troleandomycin tramadol vardenafil What if I miss a dose? If you miss a dose, take it as soon as you can. If it is almost time for your next dose, take only that dose. Do not take double or extra doses. Where should I keep my medicine? Keep out of the reach of children. Store at room temperature between 15 and 30 degrees C (59 and 86 degrees F). Keep container tightly closed. Throw away any unused medicine after the expiration date. What should I tell my health care provider before I take this medicine? They need to know if you have any of these conditions: heart disease, irregular heartbeat, or previous heart attack liver disease thyroid problem an unusual or allergic reaction to cyclobenzaprine, tricyclic antidepressants, lactose, other medicines, foods, dyes, or preservatives or trying to get breast-feeding What should I watch for while using this medicine? Check with your doctor or health pharmacist critical care if your condition does not improve within 1 to 3 weeks. You may get drowsy or dizzy when you first start taking the medicine or change doses. Do not drive, use machinery, or do anything that may be dangerous until you know how the medicine affects you. Stand or sit up slowly. Your mouth may get dry. Drinking water, chewing sugarless gum, or sucking on hard candy may help. You have been given the following additional information: Muscle Strain, Extremity Hydrocodone Bitartrate, Acetaminophen Oral tablet Cyclobenzaprine Hydrochloride Oral tablet Do not work for two days. (Electronically signed by Rosita Massey P.A.-C 02/01/2017 21:18)
--- NOTE | 2017-02-01 21:19 | ED MAR SUMMARY ---
..... Medication Administration Record [facility] [address] [place] [address] Patient: MICHI MARIE Visit ID: [id number] 41y, F Weight: 61.2 kg Height/Length: 68 in BMI: 20.5 ALLERGIES: Ampicillin Given 21:02/01/2017 Jolie Lopez R.N. Medication Administered: VALIUM [PO] (DIAZEPAM), Dose: 2.5 mg Tablets PO. Medication Ordered: Valium PO 2.5 mg (HIGH ALERT MEDICATION, NOW). Given 21:02/01/2017 Jolie Lopez R.N. Medication Administered: MOTRIN [PO], Dose: 800 mg Tablets PO. Medication Ordered: Motrin PO 800 mg (NOW). Given 21:01 02/01/2017 Jolie Lopez RIvonneN. Medication Administered: HYDROCODONE-APAP [PO] (HYDROCODONE-ACETAMINOPHEN), Dose: 1 tab 5/325 mg Tablets PO. Medication Ordered: Hydrocodone-APAP PO 5/325 mg (NOW, HIGH ALERT MEDICATION).
== END 2017-02-01 21:08 | disposition home or self-care (01) ==
LOC: ED SRH 20:20
DX: S86.111A Strain of other muscle(s) and tendon(s) of posterior muscle group at lower leg level, right leg, initial encounter (principal); X50.3XXA Overexertion from repetitive movements, initial encounter; Y93.62 Activity, american flag or touch football; Y99.8 Other external cause status; Y92.328 Other athletic field as the place of occurrence of the external cause; Z79.899 Other long term (current) drug therapy; Z88.1 Allergy status to other antibiotic agents

== ENCOUNTER 2017-02-22 13:41 | Outpatient (CLI) | payer OTHER ==
--- NOTE | 2017-02-22 22:46 | DIAGNOSTIC IMAGING REPORT ---
PROCEDURE: MR LOW EXT NONJOINT WO CON-RT INDICATION: TEAR MEDIAL HEEL TECHNIQUE: Three plain T1 and STIR sequences through the lower extremities. Axial PD fat sat and sagittal STIR sequence through the knee, sagittal and axial STIR sequence through the ankle. COMPARISON: None. FINDINGS: There is a lentiform 14 cm long hematoma between the medial gastrocnemius muscle and the soleus muscle. Proximally, plantaris muscle appears intact. The hematoma runs in the expected location of the plantaris tendon which is not well visualized, however the retracted tendon is also not visualized. Proximally at its origin, plantaris muscle appears intact. Proximally, there is perifascial fluid around the gastrocnemius and edema throughout the medial and musculature. At the gastrocnemius and soleus aponeurosis in the midcalf, there is irregularity of the gastrocnemius tendon fibers and again, moderate fascial fluid. Distally, the soleus contribution to the Achilles tendon maintains a normal thickness, morphology, and signal. The plantaris tendon distally appears normal. Moderate extensive subcutaneous edema posteriorly at the ankle. Intact tibia and fibula with normal marrow signal. Trace focal chondromalacia along the lateral facet of the patella with trace underlying edema. IMPRESSION: 1. Findings of partial tearing of the distal medial head gastrocnemius tendon at the aponeurosis of the soleus. 2. Medial gastrocnemius muscle strain and intermuscular hematoma with probably intact plantaris tendon.
== END 2017-02-22 23:00 ==
LOC: MRI SRH 13:41
DX: S93.691A Other sprain of right foot, initial encounter (principal); S86.811A Strain of other muscle(s) and tendon(s) at lower leg level, right leg, initial encounter